=== PATIENT | female | born 1995 | race African-American/Black ===

== ENCOUNTER 2016-08-18 14:37 | Emergency (ER) | payer MEDICAID ==
[2016-08-18] MEDS ORDERED: SODIUM CHLORIDE 0.9% 1,000 ML ONE (15:07)
[2016-08-18] MEDS ORDERED: ONDANSETRON 4 MG VIAL ONE (15:07)
== END 2016-08-18 16:29 | disposition home or self-care (01) ==
LOC: ER 14:37
DX: O21.8 Other vomiting complicating pregnancy (principal); Z3A.01 Less than 8 weeks gestation of pregnancy
CPT/HCPCS: 36415; 80053; 81001; 83690; 84702; 85025; 87088; 96361; 96374